=== PATIENT | female | born 1955 | race Two or more races ===

== ENCOUNTER 2017-08-20 11:51 | Emergency (ER) | payer OTHER ==
[~2017-08-20] VITALS: Ht 165.1 cm; Wt 56.7 kg
[2017-08-20] MEDS ORDERED: PROBIOTIC1 EAC1 (12:10)
[2017-08-20] MEDS ORDERED: TOPROL XL50 MG (12:10)
== END 2017-08-20 20:01 | disposition home or self-care (01) ==
LOC: ER 11:51
DX: K57.90 Diverticulosis of intestine, part unspecified, without perforation or abscess without bleeding (principal); R10.32 Left lower quadrant pain

== ENCOUNTER 2018-05-17 11:52 | Outpatient (CLI) | payer OTHER ==
[~2018-05-17 11:52] MED LIST: PROBIOTIC1 EAC1; TOPROL XL50 MG
== END 2018-05-17 12:10 | disposition home or self-care (01) ==
LOC: RAD 11:52
DX: M25.561 Pain in right knee (principal); M25.562 Pain in left knee
CPT/HCPCS: 73721

== ENCOUNTER 2020-02-26 14:27 | Outpatient (CLI) | payer OTHER | END 2020-02-26 14:44 | disposition home or self-care (01) | LOC: TOM 14:27 | PROVIDERS: ATTEND Specialist | DX: K57.30 Diverticulosis of large intestine without perforation or abscess without bleeding (principal) ==

== ENCOUNTER 2022-02-17 12:37 | Outpatient (CLI) | payer OTHER | END 2022-02-17 13:00 | disposition home or self-care (01) | LOC: TOM 12:37 | PROVIDERS: ATTEND Specialist | DX: K57.10 Diverticulosis of small intestine without perforation or abscess without bleeding (principal) ==

== ENCOUNTER 2023-01-25 11:22 | Outpatient (CLI) | payer OTHER | END 2023-01-25 11:28 | disposition home or self-care (01) | LOC: NUCLEAR 11:22 | PROVIDERS: ATTEND Thoracic Surgery (Cardiothoracic Vascular Surgery) | DX: I73.9 Peripheral vascular disease, unspecified (principal) ==

== ENCOUNTER 2023-04-12 13:31 | Inpatient (IN) | payer OTHER ==
[~2023-04-12] VITALS: Ht 167.6 cm; Wt 54.4 kg
--- NOTE | 2023-04-12 13:39 | NUR ---
PTE ALERTA,ESTABLE Y ORIENTADA.ESTA REFIERE QUE DESDE EL JEAN-PIERRE COMENZO CON EL DOLOR ABD
--- NOTE | 2023-04-12 14:29 | NUR ---
SE RECIBE PTE ALERTA Y ORIENTADA X3. SE WALDEMAR MUESTRAS DE [facility]ATOR[facility] LEANN ORDEN MEDICA BAJO MEDIDAS ASEPTICAS. SE ADMINISTRAN MEDICAMENTOS LEANN ORDEN MEDICA. SE ORIENTA ACERCA DE [place] MEDICO. VENOPUNCION PATENTE Y CHADD DE EDEMA CON IV FLUIDS BAJANDO POR REGULADOR. PENDIENTE ESTUDIO.
[2023-04-12 14:30] LABS: HEMATOCRIT 41.6 % (36.0-45.00); HEMOGLOBIN 13.8 g/dL (12.0-15.00); MEAN CELL VOLUME 88.6 fL (80.00-100.00); MEAN CORPUSCULAR HEMOGLOBIN 29.4 pg (27.00-32.0); MEAN CORPUSCULAR HGB CONC 33.2 g/dl (32.0-36.0); PLATELET COUNT 265 K/uL (150-450); RED BLOOD COUNT 4.69 M/uL (4.00-6.00); RED CELL DISTRIBUTION WIDTH 13.1 % (11.5-14.5)
[2023-04-12 14:50] LABS: CALCIUM 9.3 mg/dL (8.5-10.1); CREATININE SERUM 0.78 mg/dL (0.55-1.02); GFR 73.89; POTASSIUM 4.03 mEq/L (3.5-5.1)
[2023-04-12 20:25] LABS: INR 1.01; PARTIAL THROMBOPLASTIN TIME 28.2 SECONDS (22.0-34.0); PROTHROMBIN TIME 10.6 SECONDS (9.0-11.5)
[2023-04-12 20:29] LABS: C-REACTIVE PROTEIN 3.89 MG/DL (0.00-0.29)
[2023-04-12 22:23] LABS: PH,URINE 6.5 (5.0-8.0); URINE APPEARANCE Clear; URINE BILIRRUBIN Negative (NEGATIVE); URINE BLOOD Trace; URINE COLOR Yellow; URINE GLUCOSE Negative (NEGATIVE); URINE LEUKOCYTE Negative; URINE NITRATE Negative; URINE PROTEIN Negative (NEGATIVE); URINE UROBILINOGEN 0.2 E.U./dl
[2023-04-12 22:26] LABS: URINE BACTERIA 6.2 uL (0.0-1933); URINE RBC 21.6 uL (0.0-20.8)
[2023-04-12 22:37] LABS: URINE EPITHELIAL CELLS 0.7 uL (0.0-38.8); URINE WBC 0 uL (0.0-23.2)
[2023-04-13 01:01] LABS: FECAL LEUKOCYTES POSITIVE (NEGATIVE)
[2023-04-15 08:05] LABS: CALCIUM 8.1 mg/dL (8.5-10.1); CREATININE SERUM 0.74 mg/dL (0.55-1.02); GFR 78.52; POTASSIUM 4.01 mEq/L (3.5-5.1)
[2023-04-15 08:50] LABS: HEMATOCRIT 37.2 % (36.0-45.00); HEMOGLOBIN 12.4 g/dL (12.0-15.00); MEAN CELL VOLUME 88.9 fL (80.00-100.00); MEAN CORPUSCULAR HEMOGLOBIN 29.6 pg (27.00-32.0); MEAN CORPUSCULAR HGB CONC 33.3 g/dl (32.0-36.0); PLATELET COUNT 245 K/uL (150-450); RED BLOOD COUNT 4.18 M/uL (4.00-6.00); RED CELL DISTRIBUTION WIDTH 13.3 % (11.5-14.5)
== END 2023-04-16 17:18 | disposition home or self-care (01) | DRG 392 ==
LOC: ER 13:31 → MEDI 19:18
PROVIDERS: Emergency Medicine; General Practice; Internal Medicine; ADMIT Specialist; ATTEND Specialist
PROC: BW21YZZ Computerized Tomography (CT Scan) of Abdomen and Pelvis using Other Contrast (ICD-10-PCS; principal; 2023-04-12)
DX: K52.89 Other specified noninfective gastroenteritis and colitis (principal); K62.89 Other specified diseases of anus and rectum; I10 Essential (primary) hypertension; Z20.822 Contact with and (suspected) exposure to COVID-19